=== PATIENT | female | born 1975 | race Caucasian/White ===

== ENCOUNTER → 2023-11-05 08:21 | Outpatient (REF) | payer BC, SELFPAY | LOC: HWRAD 08:21 | PROVIDERS: ATTENDING PHYSICIAN Nurse Practitioner | DX: K85.10 Biliary acute pancreatitis without necrosis or infection (principal) | CPT/HCPCS: 74177; Q9967 ==

== ENCOUNTER → 2023-11-23 13:58 | Outpatient (REF) | payer BC, SELFPAY | LOC: HWRAD 13:58 | PROVIDERS: ATTENDING PHYSICIAN Nurse Practitioner | DX: N84.0 Polyp of corpus uteri (principal) | CPT/HCPCS: 76830; 76856 ==

== ENCOUNTER → 2024-01-22 08:36 | Outpatient (REF) | payer BC, SELFPAY | LOC: PAVMRI 08:36 | PROVIDERS: ATTENDING PHYSICIAN Student in an Organized Health Care Education/Training Program; FAMILY PHYSICIAN Nurse Practitioner | DX: N93.9 Abnormal uterine and vaginal bleeding, unspecified (principal) | CPT/HCPCS: 72197; A9575 ==

== ENCOUNTER 2024-04-11 06:37 | Day surgery (SDC) | payer BC, SELFPAY ==
[2024-04-01 09:05] LABS: % Basophils 0.5 % (0-2); % Eosinophils 2.5 % (0-6); % Immature Granulocytes 0.2 % (0-0.5); % Lymphocytes 34.5 % (20.5-51.1); % Monocytes 7.2 % (1.7-9.3); % Neutrophils 55.1 % (42.2-75.2); Absolute Eosinophils 0.1 10^3/uL (0-0.7); Absolute Lymphocytes 1.9 10^3/uL (1.2-3.4); Absolute Monocytes 0.4 10^3/uL (0.1-0.6); Hematocrit 36.9 % (37.0-47.0); Hemoglobin 12.3 g/dL (12.0-16.0); Mean Corp Hgb Conc. 33.3 g/dL (33.0-37.0); Mean Corpuscular Hgb 30.1 pg (27.0-31.0); Mean Corpuscular Volume 90.2 fL (81.0-99.0); Mean Platelet Volume 11.7 fL (7.4-10.4); Nucleated Red Blood Cells % 0 %; Platelet Count 208 10^3/uL (130-400); Red Blood Cell Count 4.09 10^6/uL (4.20-5.40); Red Cell Dist. Width 12.7 % (11.5-14.5); White Blood Cell Count 5.5 10^3/uL (4.8-10.8)
[2024-04-01 09:08] LABS: Blood Urea Nitrogen 16 mg/dl (7-17); Calcium 9.2 mg/dl (8.4-10.2); Carbon Dioxide 27 mmol/L (22-30); Chloride 103 mmol/L (98-107); Glucose 80 mg/dl (70-99); Potassium 4.5 mmol/L (3.5-5.1); Sodium 139 mmol/L (135-145); eGFR > 60.00
[2024-04-01 13:05] VITALS: BMI 24.2
[2024-04-11] VITALS (8 sets, daily range): BP systolic 90–104; BP diastolic 47–72; BMI 24.2
[2024-04-11] MEDS: TYLENOL 1000 MG PO (09:40)
[2024-04-11] MEDS: NORMOSOL-R/PLASMALYTE-A 1000 IV (09:40)
== END 2024-04-11 12:36 | disposition home or self-care (01) ==
LOC: SDS 06:37
PROVIDERS: ATTENDING PHYSICIAN Obstetrics & Gynecology; FAMILY PHYSICIAN Nurse Practitioner
DX: D25.9 Leiomyoma of uterus, unspecified (principal); N84.0 Polyp of corpus uteri; N94.6 Dysmenorrhea, unspecified; N92.0 Excessive and frequent menstruation with regular cycle
CPT/HCPCS: 58558; 88305; 36415; 80048; 85025; 86850; 86900; 86901

== ENCOUNTER 2024-07-06 09:34 | Emergency (ER) | payer BC, SELFPAY ==
[2024-07-06 09:38] VITALS: BP 118/69
[2024-07-06 10:10] VITALS: BMI 24.8
--- NOTE | 2024-07-06 10:11 | ED.GENMED ---
History of Present Illness
General
Chief Complaint: Abdominal Pain
Source: patient
Exam Limitations: none
Time Seen by Provider: 07/06/24 09:53
History of Present Illness
History of Present Illness:
49yoF with a history of hyperlipidemia, LUAN, hypothyroidism, and kidney stones presenting for evaluation of abdominal pain. Symptoms initially began around 6:30 AM this morning. She reports a pain in her right lower quadrant and initially thought
she might be ovulating. Pain became worse about an hour later. Pain is constant but also waxing and waning. She described it as feeling like labor pains. She took ibuprofen which did seem to help. Pain radiated to the right lower back initially
but she has no flank/back pain currently. She had an episode of diarrhea this morning. She is otherwise asymptomatic and denies any nausea, vomiting, fevers, vaginal bleeding, vaginal discharge, dysuria. Of note, patient had a D&C performed in
March 2024. Last menstrual period was 10 days ago.
Past History
Past History
ED Past Medical History: Hypothyroidism and Other (Kidney stone, migraines,)
ED Past Surgical History: Tonsilectomy
Social History
Tobacco: Non-smoker
Drug: None
Personal:
Living: with family
Employment: Other
Family History
Family History: Other (Kidney stones)
Phy Exam
General Physical Exam
General Presentation: well appearing and no apparent distress
General age: appears stated age
General Skin: warm and dry
General Habitus: normal
General Mental: alert
ENT Exam
ENT Exam: normocephalic
Pulmonary Exam
Pulmonary Exam: no respiratory distress
Gastrointestinal Exam
Gastrointestinal Exam: soft, non distended and other (+RLQ tenderness. Abdomen soft, non-distended. No rebound or guarding.)
Neurological Exam
Neurological Exam: alert
Thorndike Coma Scale
Eye Opening: Spontaneous
Verbal Response: Oriented
Motor Response: Obeys Commands
GCS Total Score: 15
Skin Exam
Skin Exam: normal color and warm/dry
Psychiatric Exam
Psychiatric Exam: normal mood/affect
Course
Orders/Labs/Results
Orders:
Orders
07/06/24 09:54
Test Result ONCE
07/06/24 10:10
CT Abd/pel W Iv And Oral Contr Urgent
Comment:
Reason For Exam: RLQ pain
0.9% Sodium Chloride 1000 ml [Nss] 1,000 ml IV BOLUS
Iohexol [Omnipaque] See Protocol PO NOW STA
07/06/24 10:29
Complete Blood Count/With Diff Urgent
Comprehensive Metabolic Panel Urgent
HCG, Serum Qualitative Screen Urgent
Lipase Urgent
07/06/24 11:00
Urinalysis Reflex To Culture Urgent
Date Specimen was Collected: 07/06/24
Time Specimen was Collected: 10:19
Abnormal Lab Results
07/06/24
10:29
MPV 11.7 H fL
(7.4-10.4)
Abs Immat Gran (auto) 0.1 H 10^3/uL
(0-0.05)
Immature Gran % 1.2 H %
(0-0.5)
Calcium 10.4 H mg/dl
(8.4-10.2)
07/06/24 10:29
07/06/24 10:29
Vital Signs
Initial and Last Documented VS:
Initial Vital Signs
Temp Pulse Resp BP Pulse Ox
98.3 F 84 16 118/69 100
07/06/24 09:38 07/06/24 09:38 07/06/24 09:38 07/06/24 09:38 07/06/24 09:38
Last Documented Vital Signs
Temp Pulse Resp BP Pulse Ox
98.3 F 81 16 99/71 100
07/06/24 09:38 07/06/24 12:08 07/06/24 12:08 07/06/24 14:49 07/06/24 14:50
MDM/Problems Addressed
Differential Diagnosis Includes:
49yoF here with colicky RLQ pain that began this morning. Feels like labor pains. Had 1 episode of diarrhea. Hx of kidney stones. VSS. She is non toxic-appearing in no distress. No signs of peritonitis on abdominal exam. Differential diagnosis
includes but is not limited to: Appendicitis, kidney stone, pyelonephritis, constipation
Initial ED plan: Check abdominal labs, HCG, UA, and CT abdomen with IV/PO contrast. IV fluid bolus. She declines analgesics.
*Critical Care Note
Total Time (30-74mins, 75-104mins- exclusive of procedures): Not Applicable
Update Note
Update Note:
Labs overall unremarkable including normal white count, electrolytes, renal function, LFTs. hCG negative. UA bland without signs of infection or microscopic hematuria. CT shows air-fluid levels throughout normal caliber small bowel loops, a
finding that may be seen in associated with ileus or enteritis. No imaging evidence of bowel obstruction. No ureterolithiasis or signs of appendicitis noted. There is also abnormal findings at the endometrium which are most likely related to a
polyp. This was also seen on MRI in January 2024 although patient did subsequently have this polyp removed. Patient was informed of this finding, given a copy of the radiology report, and advised to f/u with her OBGYN regarding this. Pain is
mild, 3/10 in severity on reassessment. No indication for hospitalization. Recommend bowel rest and close PCP follow-up. ED return precautions discussed. Patient in agreement with plan and was discharged in stable condition.
ED Attending Note
-
Portions of this chart may have been created with voice recognition software.� Occasional wrong word or��sound alike� substitutions may have occurred due to the inherent limitations of voice recognition software.
Discharge Plan
Departure
Patient Disposition: Home (Routine Discharge)
Date of Disposition: 07/06/24
Time of Disposition: 14:25
Patient with high blood pressure during this ER visit?: No
Discharge Problem:
Enteritis
Instructions: Abdominal pain in adults - Discharge instructions
Prescriptions:
No Action
sertraline 25 MG tablet
25 mg PO Q48H
candesartan 8 MG tablet
8 mg PO DAILY
K2 Plus D3 1 EACH tablet
1 ea PO PRN PRN (Reason: supplement)
ascorbic acid (vitamin C) [Vitamin C] 1,000 mg Tablet
2,000 mg PO PRN PRN (Reason: supplement)
fexofenadine [Elizabeth] 180 mg Tablet
180 mg PO DAILY
levothyroxine [Synthroid] 75 mcg Tablet
75 mcg PO DAILY
Iron/Multivitamin/Mineral Tablet
1 tab PO DAILY
Wegovy 2.4 mg/0.75 mL Pen Injector
2.4 mg SC QWEEK
magnesium oxide 300 mg magnesium Tablet
300 mg PO DAILY
collagen
1 dose pk PO PRN
colostrum, bovine
1 dose PO DAILY
Referrals:
Charlotte Gale MD [Family Provider] -
Activity Restrictions/Additional Instructions:
Recommend bowel rest until pain improves with clear liquid diet. You may advance diet as tolerated.
Please follow-up with your family doctor in 2-3 days. Return to the ER with any new or worsening symptoms.
Interventions
Interventions:
*Risk Screen - Suicide Last Done: 07/06/24 10:41
*General Assessment Last Done: 07/06/24 10:41
*Neglect/Abuse Screening Last Done: 07/06/24 10:41
*ED- Fall Risk Assessment Last Done: 07/06/24 14:45
*ED COVID-19 Vaccine History Last Done: 07/06/24 14:45
*Nursing Disposition Last Done: 07/06/24 14:45
GR-Osfoxa-Nrezifuzcl Assessment Last Done: 07/06/24 12:30
Discharge Date and Time
Discharge Date/Time: 07/06/24 14:45
Print Language: DIVEHI
[2024-07-06] MEDS: OMNIPAQUE 50 ML PO (10:20)
[2024-07-06] MEDS: NSS 1000 IV (10:31)
[2024-07-06 10:36] VITALS: BP 103/69
[2024-07-06 10:51] LABS: % Basophils 0.3 % (0-2); % Immature Granulocytes 1.2 % (0-0.5); % Lymphocytes 29.3 % (20.5-51.1); % Monocytes 5.7 % (1.7-9.3); % Neutrophils 61.5 % (42.2-75.2); Absolute Eosinophils 0.1 10^3/uL (0-0.7); Absolute Immature Granulocytes 0.1 10^3/uL (0-0.05); Absolute Lymphocytes 1.8 10^3/uL (1.2-3.4); Absolute Monocytes 0.3 10^3/uL (0.1-0.6); Absolute Neutrophils 3.7 10^3/uL (1.4-6.5); Hematocrit 39.5 % (37.0-47.0); Hemoglobin 13.2 g/dL (12.0-16.0); Mean Corp Hgb Conc. 33.4 g/dL (33.0-37.0); Mean Corpuscular Hgb 29.5 pg (27.0-31.0); Mean Corpuscular Volume 88.4 fL (81.0-99.0); Mean Platelet Volume 11.7 fL (7.4-10.4); Nucleated Red Blood Cells % 0 %; Platelet Count 196 10^3/uL (130-400); Red Blood Cell Count 4.47 10^6/uL (4.20-5.40); Red Cell Dist. Width 12.9 % (11.5-14.5)
[2024-07-06 10:55] LABS: HCG, Serum Qualitative Screen Negative
[2024-07-06 11:00] VITALS: BP 105/69
[2024-07-06 11:00] LABS: ALT (SGPT) 19 U/L (0-35); AST (SGOT) 29 U/L (14-36); Albumin 4.6 g/dl (3.5-5.0); Alkaline Phosphatase 51 U/L (38-126); Blood Urea Nitrogen 15 mg/dl (7-17); Calcium 10.4 mg/dl (8.4-10.2); Carbon Dioxide 26 mmol/L (22-30); Chloride 105 mmol/L (98-107); Estimated Creatinine Clearance 89 ml/min; Glucose 83 mg/dl (70-99); Lipase 238 U/L (23-300); Potassium 4.6 mmol/L (3.5-5.1); Sodium 140 mmol/L (135-145); Total Bilirubin 0.7 mg/dl (0.2-1.3); Total Protein 8.1 g/dl (6.3-8.2); eGFR > 60.00
[2024-07-06 11:17] LABS: Urine Albumin Negative (Neg - Trace); Urine Bilirubin Negative (Negative); Urine Character Clear (Clear); Urine Color Yellow; Urine Glucose Negative (Negative); Urine Ketone Negative (Negative); Urine Leukocyte Negative (Negative); Urine Nitrite Negative (Negative); Urine Occult Blood Negative (Negative); Urine Specific Gravity 1.015 (<1.030); Urine Urobilinogen Negative (Neg - 1+)
[2024-07-06 12:00] VITALS: BP 116/76
[2024-07-06 14:49] VITALS: BP 99/71
== END 2024-07-06 14:45 | disposition home or self-care (01) ==
LOC: EMR 09:34
PROVIDERS: Physician Assistant; EMERGENCY PHYSICIAN Emergency Medicine; FAMILY PHYSICIAN Hospitalist
DX: K52.9 Noninfective gastroenteritis and colitis, unspecified (principal); E03.9 Hypothyroidism, unspecified; E78.5 Hyperlipidemia, unspecified; G47.33 Obstructive sleep apnea (adult) (pediatric); Z87.442 Personal history of urinary calculi
CPT/HCPCS: 96360; 99284; 74177; 80053; 81003; 83690; 84703; 85025; Q9967

== ENCOUNTER → 2024-07-12 15:31 | Outpatient (REF) | payer BC, SELFPAY | LOC: HWRAD 15:31 | PROVIDERS: ATTENDING PHYSICIAN Hospitalist | DX: R10.31 Right lower quadrant pain (principal) | CPT/HCPCS: 76775 ==